=== PATIENT | male | born 1995 | race Caucasian/White ===

== ENCOUNTER → 2018-03-15 | Emergency (ER) | payer SELFPAY ==
[~2018-03-15] VITALS: Ht 182.9 cm; Wt 81.8 kg
[2018-03-15 03:39] VITALS: BP 145/77; TEMP 98.2
[2018-03-15 04:31] VITALS: PULSE 71
== END ==
LOC: COL.ER 03:33
DX: S02.2XXA Fracture of nasal bones, initial encounter for closed fracture (principal); Y04.8XXA Assault by other bodily force, initial encounter

== ENCOUNTER 2019-03-24 15:00 | Outpatient (RCR) | payer BC | END 2019-05-14 | disposition home or self-care (01) | LOC: WSC | DX: S42.201A Unspecified fracture of upper end of right humerus, initial encounter for closed fracture (principal); S42.121A Displaced fracture of acromial process, right shoulder, initial encounter for closed fracture ==